=== PATIENT | male | born 1960 | race Asian ===

== ENCOUNTER 2018-04-16 22:47 | Emergency (ER) | payer SELFPAY ==
[2018-04-16] MEDS ORDERED: NA CHLORIDE 0.9% 1,000 ML ONE (23:35)
[2018-04-16 23:38] LABS: Absolute Lymphocytes (CBC) 1.7 K/uL (0.7-4.9); Absolute Monocytes 0.6 K/uL (0.1-1.3); Absolute Neutrophil 8.9 K/uL (1.8-8.0); Basophils % 1.1 % (0-1.3); Eosinophils % 2.2 % (0-4.4); Hematocrit 35.4 % (39.6-49.0); Lymphocytes % 14.8 % (15.3-44.8); MCH 33.2 pg (27.0-35.0); MCV 101.1 fL (80-100); Monocytes % 4.9 % (3.3-12.3)
[2018-04-16 23:50] LABS: Urine Blood 1+ (NEG); Urine Glucose NEGATIVE (NEG); Urine Protein TRACE (NEG); Urine pH 5.5 (5.0-7.0)
[2018-04-17 00:01] LABS: Albumin 3.6 g/dL (3.4-5.0); Bilirubin Direct 0.3 mg/dL (0-0.2); Potassium 3.3 mmol/L (3.5-5.1); Protein, Total 8.5 g/dL (6.4-8.2)
--- NOTE | 2018-04-17 02:12 | ER ---
Nurse's Notes [facility] Name: Foster Dickson Age: 57 yrs Sex: Male : 1960 Arrival Date: 04/16/2018 Time: 22:56 Bed 17 Private MD: Diagnosis: Sunburn of first degree;Dehydration;Hypokalemia Presentation: 04/16 22:56 Presenting complaint: EMS states: Called by PD for patient who continually kept walking lp1 in and out of [employer] store, seemed confused; A/O x3 on arrival of EMS, answering questions appropriately; [place]. Transition of care: patient was not received from another setting of care. Onset of symptoms was April 16, 2018. Risk Assessment: Do you want to hurt yourself or someone else? Patient reports no desire to harm self or others. Initial Sepsis Screen: Does the patient meet any 2 criteria? No. Patient's initial sepsis screen is negative. Does the patient have a suspected source of infection? No. Patient's initial sepsis screen is negative. Care prior to arrival: Glucose check: 164. 22:56 Method Of Arrival: EMS: [facility] lp1 22:56 Acuity: DEJON 3 lp1 Historical: - Allergies: 23:00 No Known Allergies; lp1 - Home Meds: 23:00 None [Active]; lp1 - PMHx: 23:00 None; lp1 - PSHx: 23:00 None; lp1 - Immunization history:: Adult Immunizations unknown. - Social history:: Smoking status: Patient/guardian denies using tobacco. - Ebola Screening: : No symptoms or risks identified at this time. Screenin:00 Abuse screen: Denies threats or abuse. Denies injuries from another. Nutritional lp1 screening: No deficits noted. Tuberculosis screening: No symptoms or risk factors identified. Fall Risk None identified. Assessment: 23:00 General: Appears in no apparent distress. Behavior is calm, cooperative. Pain: Denies lp1 pain. Neuro: Level of Consciousness is awake, alert, obeys commands, Oriented to person, place, situation, Gait is steady, Facial symmetry appears normal, Pupils are PERRLA. Cardiovascular: Patient's skin is warm and dry. Respiratory: Respiratory effort is even, unlabored, Breath sounds are clear bilaterally. GI: Abdomen is non-distended. : No signs and/or symptoms were reported regarding the genitourinary system. EENT: No signs and/or symptoms were reported regarding the EENT system. Derm: Sun burn noted to lower legs and face. Musculoskeletal: Circulation, motion, and sensation intact. 04/17 00:00 Reassessment: Patient appears in no apparent distress at this time. Patient and/or lp1 family updated on plan of care and expected duration. Pain level reassessed. Patient resting, eyes closed, respirations unlabored. 00:37 Reassessment: Patient ambulated to bathroom at this time. lp1 01:45 Reassessment: Patient appears in no apparent distress at this time. Patient and/or lp1 family updated on plan of care and expected duration. Pain level reassessed. Patient resting, eyes closed, respirations unlabored. 02:44 Reassessment: Patient appears in no apparent distress at this time. Patient is alert, lp1 oriented x 3, equal unlabored respirations, skin warm/dry/pink. Neuro: Moves all extremities. Full function Gait is steady. Vital Signs: 04/16 22:58 BP 166 / 98; Pulse 107; Resp 18; Temp 99.2(O); Pulse Ox 97% on R/A; Weight 70.31 kg; lp1 04/17 00:00 BP 154 / 72; Pulse 102; Resp 18; Pulse Ox 97% on R/A; lp1 01:00 BP 138 / 70; Pulse 95; Resp 18; Pulse Ox 93% on R/A; lp1 02:00 BP 115 / 73; Pulse 90; Resp 18; Pulse Ox 94% on R/A; lp1 ED Course: 04/16 22:56 Patient arrived in ED. lp1 22:58 Triage completed. lp1 22:59 Arm band placed on left wrist. lp1 23:00 Patito Beck FNP-C [facility]. snw 23:00 Percy Fitzpatrick MD is Attending Physician. snw 23:00 Patient has correct armband on for positive identification. Placed in gown. Bed in low lp1 position. supply chain procurement manager on. Pulse ox on. NIBP on. 23:02 Hilary Wynn RN is Primary Nurse. lp1 23:20 Missed attempt(s): 20 gauge in right forearm. Inserted saline lock: 20 gauge in left lp1 antecubital area, using aseptic technique. Blood collected. 23:38 Noise minimized. Lights dimmed. Warm blanket given. Pillow given. lp1 04/17 02:29 No provider procedures requiring assistance completed. IV discontinued, No lp1 redness/swelling at site. Pressure dressing applied. Administered Medications: 04/16 23:37 Drug: NS 0.9% 1000 ml Route: IV; Rate: 1 bolus; Site: left antecubital; lp1 04/17 01:00 Follow up: IV Status: Completed infusion; IV Intake: 1000ml lp1 02:28 Drug: Potassium Effervescent Tablet 50 mEq Route: PO; lp1 02:44 Follow up: Response: No adverse reaction lp1 Intake: 01:00 IV: 1000ml; Total: 1000ml. lp1 Outcome: 02:12 Discharge ordered by . farrah 02:44 Discharged to home ambulatory, with [facility] lp1 02:44 Condition: good 02:44 Discharge instructions given to patient, Instructed on discharge instructions, follow up and referral plans. Demonstrated understanding of instructions. 02:48 Patient left the ED. lp1 Signatures: Patito Beck, PEDIATRICIAN ACTIVE PRACTICE-C PEDIATRICIAN ACTIVE PRACTICE-Csnw Hilary Wynn, RN RN lp1
--- NOTE | 2018-04-17 02:12 | EDPHYS ---
Physician Documentation [facility] Name: Foster Dickson Age: 57 yrs Sex: Male : 1960 Arrival Date: 04/16/2018 Time: 22:56 Bed 17 Private MD: ED Physician Percy Fitzpatrick HPI: 04/16 23:22 This 57 yrs old Male presents to ER via EMS with complaints of Altered Mental snw Status. 23:22 The patient presents with trouble concentrating. Onset: The symptoms/episode snw began/occurred acutely. Possible causes: unknown. Associated signs and symptoms: The patient has no apparent associated signs or symptoms. Current symptoms: In the emergency department the patient's symptoms have improved. Patient's baseline: Neuro: alert and fully oriented. It is unknown whether or not the patient has had similar symptoms in the past. The patient has not recently seen a physician. pt apparently moved to area 3[place] ago, [place]. Pt states he was going in and out of a store looking for containers [place] cook [place] the [place]. The police were called and pt was brought to the hospital for confusion.. Historical: - Allergies: 23:00 No Known Allergies; lp1 - Home Meds: 23:00 None [Active]; lp1 - PMHx: 23:00 None; lp1 - PSHx: 23:00 None; lp1 - Immunization history:: Adult Immunizations unknown. - Social history:: Smoking status: Patient/guardian denies using tobacco. - Ebola Screening: : No symptoms or risks identified at this time. ROS: 23:22 Constitutional: Negative for fever, chills, and weight loss, Eyes: Negative for injury, snw pain, redness, and discharge, ENT: Negative for injury, pain, and discharge, Neck: Negative for injury, pain, and swelling, Cardiovascular: Negative for chest pain, palpitations, and edema, Respiratory: Negative for shortness of breath, cough, wheezing, and pleuritic chest pain, Abdomen/GI: Negative for abdominal pain, nausea, vomiting, diarrhea, and constipation, Back: Negative for injury and pain, : Negative for injury, bleeding, discharge, and swelling, MS/Extremity: Negative for injury and deformity, Skin: Negative for injury, rash, and discoloration, Neuro: Negative for headache, weakness, numbness, tingling, and seizure, Psych: Negative for depression, anxiety, suicide ideation, homicidal ideation, and hallucinations. Exam: 23:22 Head/Face: Normocephalic, atraumatic. snw 23:22 Eyes: Pupils equal round and reactive to light, extra-ocular motions intact. Lids and lashes normal. Conjunctiva and sclera are non-icteric and not injected. Cornea within normal limits. Periorbital areas with no swelling, redness, or edema. ENT: Nares patent. No nasal discharge, no septal abnormalities noted. Tympanic membranes are normal and external auditory canals are clear. Oropharynx with no redness, swelling, or masses, exudates, or evidence of obstruction, uvula midline. Mucous membranes moist. Neck: Trachea midline, no thyromegaly or masses palpated, and no cervical lymphadenopathy. Supple, full range of motion without nuchal rigidity, or vertebral point tenderness. No Meningismus. Chest/axilla: Normal chest wall appearance and motion. Nontender with no deformity. No lesions are appreciated. 23:22 Respiratory: Lungs have equal breath sounds bilaterally, clear to auscultation and percussion. No rales, rhonchi or wheezes noted. No increased work of breathing, no retractions or nasal flaring. Abdomen/GI: Soft, non-tender, with normal bowel sounds. No distension or tympany. No guarding or rebound. No evidence of tenderness throughout. Back: No spinal tenderness. No costovertebral tenderness. Full range of motion. MS/ Extremity: Pulses equal, no cyanosis. Neurovascular intact. Full, normal range of motion. 23:22 Neuro: Awake and alert, GCS 15, oriented to person, place, time, and situation. Cranial nerves II-XII grossly intact. Motor strength 5/5 in all extremities. Sensory grossly intact. Cerebellar exam normal. Normal gait. 23:22 Constitutional: The patient appears awake, restless. 23:22 Cardiovascular: Rate: tachycardic, Rhythm: regular, Heart sounds: normal. 23:22 Skin: Appearance: Color: erythematous, sunburned. 23:22 Psych: Behavior/mood is anxious, Affect is calm, seems slightly fearful. Oriented to person, place, time, Patient has no thoughts/intents to harm self or others. Vital Signs: 22:58 BP 166 / 98; Pulse 107; Resp 18; Temp 99.2(O); Pulse Ox 97% on R/A; Weight 70.31 kg; lp1 04/17 00:00 BP 154 / 72; Pulse 102; Resp 18; Pulse Ox 97% on R/A; lp1 01:00 BP 138 / 70; Pulse 95; Resp 18; Pulse Ox 93% on R/A; lp1 02:00 BP 115 / 73; Pulse 90; Resp 18; Pulse Ox 94% on R/A; lp1 MDM: 04/16 23:00 Patient medically screened. snw 23:26 Data reviewed: vital signs, nurses notes. Data interpreted: Pulse oximetry: on room air snw is 97 %. Interpretation: normal. Counseling: I had a detailed discussion with the patient and/or guardian regarding: the historical points, exam findings, and any diagnostic results supporting the discharge/admit diagnosis, the presence of at least one elevated blood pressure reading (>120/80) during this emergency department visit. Awaiting: CT scan results. ED course: I feel pt may be dehydrated. [place], is [place]ed, states he is eating enough but I can't say if he is able to care for himself and keep himself hydrated. 04/17 02:08 ED course: sleeping in no acute distress, resp even and unlabored. w 04/16 23:01 Order name: Basic Metabolic Panel; Complete Time: 00:03 snw 04/16 23:01 Order name: CBC with Diff; Complete Time: 00:03 snw 04/16 23:01 Order name: Hepatic Function; Complete Time: 00:03 snw 04/16 23:01 Order name: Blood Culture* w 04/16 23:34 Order name: Urine Dipstick--Ancillary (enter results); Complete Time: 00:03 eb 04/16 23:01 Order name: IV Saline Lock; Complete Time: 23:37 snw 04/16 23:01 Order name: Labs collected and sent; Complete Time: 23:37 snw 04/16 23:01 Order name: Urine Dipstick-Ancillary (obtain specimen); Complete Time: 23:37 snw 04/17 02:10 Order name: Misc. Order: please feed patient; Complete Time: 02:19 snw Administered Medications: 04/16 23:37 Drug: NS 0.9% 1000 ml Route: IV; Rate: 1 bolus; Site: left antecubital; lp1 04/17 01:00 Follow up: IV Status: Completed infusion; IV Intake: 1000ml lp1 02:28 Drug: Potassium Effervescent Tablet 50 mEq Route: PO; lp1 02:44 Follow up: Response: No adverse reaction lp1 Disposition: 03:26 Co-signature as Attending Physician, Percy Fitzpatrick MD. rn Disposition: 04/17/18 02:12 Discharged to Home. Impression: Sunburn of first degree, Dehydration, Hypokalemia. - Condition is Stable. - Discharge Instructions: Dehydration, Adult, Potassium Content of Foods, Sunburn, Hypokalemia, Rehydration, Adult. - Medication Reconciliation Form, Thank You Letter, Antibiotic Education, Prescription Opioid Use form. - Follow up: Private Physician; When: 5 - 6 days; Reason: Recheck today's complaints, Continuance of care, Re-evaluation by your physician. Follow up: Emergency Department; When: As needed; Reason: Worsening of condition. Signatures: Dispatcher [employer] EDMS Patito Beck, DICTATING MACHINE MECHANIC-C DICTATING MACHINE MECHANIC-Csnw Percy Fitzpatrick MD MD rn Pena, Laura, RN RN lp1 Corrections: (The following items were deleted from the chart) 02:12 02:12 04/17/2018 02:12 Discharged to Home. Impression: Sunburn of first degree; snw Dehydration. Condition is Stable. Forms are Medication Reconciliation Form, Thank You Letter, Antibiotic Education, Prescription Opioid Use. Follow up: Private Physician; When: 5 - 6 days; Reason: Recheck today's complaints, Continuance of care, Re-evaluation by your physician. Follow up: Emergency Department; When: As needed; Reason: Worsening of condition. snw 02:48 02:12 04/17/2018 02:12 Discharged to Home. Impression: Sunburn of first degree; lp1 Dehydration; Hypokalemia. Condition is Stable. Forms are Medication Reconciliation Form, Thank You Letter, Antibiotic Education, Prescription Opioid Use. Follow up: Private Physician; When: 5 - 6 days; Reason: Recheck today's complaints, Continuance of care, Re-evaluation by your physician. Follow up: Emergency Department; When: As needed; Reason: Worsening of condition. snw
[2018-04-17] MEDS ORDERED: POTASSIUM 25 MEQ EFFERV TAB ONE (02:22)
== END 2018-04-17 02:48 | disposition home or self-care (01) ==
LOC: ER 22:47
DX: L55.0 Sunburn of first degree (principal); E86.0 Dehydration
CPT/HCPCS: 36415; 80048; 80076; 81003; 85025; 87040; 96360; 99284; J7030